=== PATIENT | male | born 1950 | race American Indian/Alaskan Native ===

== ENCOUNTER 2017-06-26 12:23 | Outpatient (CLI) | payer MEDICARE, OTHER ==
--- NOTE | 2017-06-26 13:18 | XRay Report ---
Unilateral left RIBS: History: Chest pain. Findings: No lytic or blastic lesion. No evidence of acute fracture. Impression: No evidence of acute fracture left ribs.
--- NOTE | 2017-06-26 13:18 | XRay Report ---
Chest 2 views: History: Chest pain. Findings: Normal cardiomediastinal silhouette. Trachea is midline. No consolidation, pneumothorax or pleural effusion. Impression: No acute cardiopulmonary findings.
== END 2017-06-26 12:24 | disposition home or self-care (01) ==
LOC: XRAY 12:23
PROVIDERS: ATTEND Internal Medicine
DX: R07.9 Chest pain, unspecified (principal)
CPT/HCPCS: 71046

== ENCOUNTER 2018-09-07 10:38 | Outpatient (CLI) | payer MEDICARE, OTHER ==
--- NOTE | 2018-09-07 11:28 | XRay Report ---
RIGHT KNEE, 3 views: History: Pain in right knee. No comparison. There is borderline bone mineralization. Mild retropatellar spurring and tibial spine spurring is identified. The medial and lateral compartments are within normal limits. There is no evidence for fracture, bone lesion or large joint effusion. IMPRESSION: Borderline osteopenia. Minimal osteoarthritic changes as described.
== END 2018-09-07 10:39 | disposition home or self-care (01) ==
LOC: XRAY 10:38
PROVIDERS: ATTEND Internal Medicine
DX: M17.11 Unilateral primary osteoarthritis, right knee (principal); E78.00 Pure hypercholesterolemia, unspecified; I10 Essential (primary) hypertension; K21.9 Gastro-esophageal reflux disease without esophagitis; E11.9 Type 2 diabetes mellitus without complications

== ENCOUNTER 2019-01-21 09:01 | Outpatient (CLI) | payer MEDICARE, OTHER ==
[2019-01-21 10:37] LABS: Chol/HDL Ratio 1.95 %
== END 2019-01-21 09:02 | disposition home or self-care (01) ==
LOC: LAB 09:01
PROVIDERS: ATTEND Internal Medicine
DX: E78.2 Mixed hyperlipidemia (principal); E11.9 Type 2 diabetes mellitus without complications; E78.00 Pure hypercholesterolemia, unspecified; K21.9 Gastro-esophageal reflux disease without esophagitis; I10 Essential (primary) hypertension
CPT/HCPCS: 36415; 80061; 83036

== ENCOUNTER 2019-07-25 07:54 | Outpatient (CLI) | payer MEDICARE, OTHER ==
--- NOTE | 2019-07-25 09:46 | Magnetic Resonance Report ---
MRI RIGHT KNEE WITHOUT CONTRAST INDICATION: PAIN IN RIGHT KNEE. COMPARISON: Right knee x-ray 09/07/2018 TECHNIQUE: Multiplanar, multisequence MR images were obtained. FINDINGS: ACL: Mucoid degeneration PCL: No significant abnormality. MEDIAL MENISCUS: No significant abnormality. LATERAL MENISCUS: Horizontal tear anterior horn lateral meniscus DISTAL QUADRICEPS TENDON: No significant abnormality. PATELLAR TENDON: No significant abnormality. MCL: No significant abnormality. LCL: No significant abnormality. DISTAL IT BAND: No significant abnormality. POSTEROLATERAL CORNER: No significant abnormality. PATELLOFEMORAL ALIGNMENT: Focal edema superior lateral aspect of Hoffa's fat pad characteristic for p atellar tendon/lateral femoral condyle friction syndrome. ARTICULAR CARTILAGE: Focal fissuring lateral patellar facet and lateral femoral trochlea with underly ing subchondral cystic change. JOINT SPACE: No significant joint effusion or synovitis. Small popliteal cyst. No intra-articular bod ies. BONES: No significant bone marrow edema. No fracture. No osseous lesion. SUBCUTANEOUS SOFT TISSUES: No significant abnormality. ADDITIONAL FINDINGS: None. IMPRESSION: 1. 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 2. Horizontal tear anterior horn lateral meniscus 3. Patellar tendon/lateral femoral condyle friction syndrome. Signer Name: Patel Weiner MD Signed: 07/25/2019 9:41 AM Workstation Name: [id number]
== END 2019-07-25 07:55 | disposition home or self-care (01) ==
LOC: MRI 07:54
PROVIDERS: ATTEND Orthopaedic Surgery
DX: S83.203A Other tear of unspecified meniscus, current injury, right knee, initial encounter (principal); M17.11 Unilateral primary osteoarthritis, right knee; M25.461 Effusion, right knee; M71.21 Synovial cyst of popliteal space [Baker], right knee; X58.XXXA Exposure to other specified factors, initial encounter; Y93.89 Activity, other specified; Y92.89 Other specified places as the place of occurrence of the external cause; Y99.8 Other external cause status
CPT/HCPCS: 73721

== ENCOUNTER 2020-08-22 16:38 | Emergency (ER) | payer MEDICARE, OTHER ==
--- NOTE | 2020-08-22 16:51 | Event Note ---
ED Screening Note Date of service: 08/22/20 Time: 16:50 ED Screening Note: Patient complains of intermittent dizziness x3 days Also admits to mild headache He states he had an head injury which he is unsure if he lost consciousness on 08/10/2020 Denies blood thinners or vision changes History of hypertension diabetes This initial assessment/diagnostic orders/clinical plan/treatment(s) is/are subject to change based on patients health status, clinical progression and re- assessment by fellow clinical providers in the ED. Further treatment and workup at subsequent clinical providers discretion. Patient/guardian urged not to elope from the ED as their condition may be serious if not clinically assessed and managed. Initial orders include: Labs EKG
--- NOTE | 2020-08-22 17:33 | Emergency Department Report ---
ED Headache HPI - General Chief Complaint: Headache Stated Complaint: HIT HEAD X 2WKS/HEADACHE Time Seen by Provider: 08/22/20 16:49 - History of Present Illness Initial Comments: 70-year-old male, history of hypertension, diabetes, presents to ED with complaint of headache x3 days. Patient states pain is located in the forehead area. States pain comes and goes quickly, lasting for only a couple of seconds. Pain is sharp when it occurs. Patient reports some mild, intermittent lightheadedness as well over the last 3 days. He denies any fever, nausea or vomiting, visual changes, numbness or weakness. Patient reports hitting the top of his head on a steel beam while attempting to stand underneath a bridge while fishing approximately 2 weeks ago. Questionable LOC. Patient denies any headache or dizziness immediately following the accident. Patient showed me a picture from that day of an abrasion to the top of his head. Area is currently healed. Patient is wondering if his symptoms today are related to his accident 2 weeks ago. Timing/Duration: other (3 days) Recent Head Trauma: occasional headaches, head trauma > 24 hrs ago Associated Symptoms: denies: confusion, fever/chills, nausea/vomiting, stiff neck, vision changes, weakness Allergies/Adverse Reactions: Allergies No Known Allergies Allergy (Verified 08/22/20 16:41) Home Medications: Ambulatory Orders Alfuzosin HCl [Uroxatral] 40 mg PO DAILY 03/14/15 Azilsartan Medoxomil [Edarbi] 40 mg PO DAILY 03/14/15 Betamethasone Dipropionate [Betamethasone Dipropionate 0.05% Cream] 1 applicatio TP QDAY 03/14/15 Celecoxib [celeBREX] 200 mg PO DAILY 03/14/15 Esomeprazole Magnesium [NexIUM] 40 mg PO QDAY 03/14/15 Pioglitazone HCl/Metformin HCl [Pioglitazone-Metformin 15-500] 1 each PO QDAY 03/14/15 Potassium Chloride [Klor-Con 8] 8 meq PO QDAY 03/14/15 HYDROcodone/APAP 5-325 [[place] 5/325] 1 - 2 each PO Q4HR PRN #30 tablet 03/20/15 Butalb/Acetamin/Caff 50-325-40 [Fioricet] 1 tab PO Q6HR PRN #10 tab 08/22/20 ED Review of Systems ROS: Stated complaint: HIT HEAD X 2WKS/HEADACHE Other details as noted in HPI Comment: All other systems reviewed and negative Constitutional: denies: fever Eyes: denies: vision change Gastrointestinal: denies: nausea, vomiting Musculoskeletal: other (reports neck pain) Neurological: headache. denies: weakness, numbness ED Past Medical Hx - Past Medical History Hx Hypertension: Yes Hx Diabetes: Yes (NIDDM 10 YEARS) Hx GERD: Yes Hx Arthritis: Yes Hx Asthma: No - Social History Smoking Status: Never Smoker Substance Use Type: None - Medications Home Medications: Home Medications Medication Instructions Recorded Confirmed Last Taken Type Alfuzosin HCl [Uroxatral] 40 mg PO DAILY 03/14/15 03/14/15 Unknown History Azilsartan Medoxomil [Edarbi] 40 mg PO DAILY 03/14/15 03/20/15 03/20/15 07:30 History Betamethasone Dipropionate 1 applicatio TP QDAY 03/14/15 03/20/15 03/19/15 07:00 History [Betamethasone Dipropionate 0.05% Cream] Celecoxib [celeBREX] 200 mg PO DAILY 03/14/15 03/20/15 03/19/15 13:00 History Esomeprazole Magnesium [NexIUM] 40 mg PO QDAY 03/14/15 03/20/15 03/19/15 08:00 History Pioglitazone HCl/Metformin HCl 1 each PO QDAY 03/14/15 03/20/15 03/19/15 13:00 History [Pioglitazone-Metformin 15-500] Potassium Chloride [Klor-Con 8] 8 meq PO QDAY 03/14/15 03/20/15 03/19/15 13:00 History HYDROcodone/APAP 5-325 [[place] 1 - 2 each PO Q4HR PRN #30 tablet 03/20/15 Unknown Rx 5/325] Butalb/Acetamin/Caff 50-325-40 1 tab PO Q6HR PRN #10 tab 08/22/20 Unknown Rx [Fioricet] ED Physical Exam - General Limitations: No Limitations General appearance: alert, in no apparent distress - Head Head exam: Present: atraumatic, normocephalic - Eye Eye exam: Present: normal appearance, PERRL, EOMI - ENT ENT exam: Present: mucous membranes moist - Neck Neck exam: Present: normal inspection, tenderness (paraspinal). Absent: meningismus - Respiratory Respiratory exam: Present: normal lung sounds bilaterally. Absent: respiratory distress - Cardiovascular Cardiovascular Exam: Present: regular rate, normal rhythm - GI/Abdominal GI/Abdominal exam: Present: soft. Absent: distended, tenderness - Extremities Exam Extremities exam: Present: normal inspection - Neurological Exam Neurological exam: Present: alert, oriented X3, CN II-XII intact, normal gait. Absent: motor sensory deficit - Psychiatric Psychiatric exam: Present: normal affect, normal mood - Skin Skin exam: Present: warm, dry, intact, normal color ED Course Vital Signs 08/22/20 08/22/20 08/22/20 16:41 17:30 17:45 Temperature 97.8 F Pulse Rate 87 74 70 Respiratory 18 14 16 Rate Blood Pressure 173/91 172/74 172/74 O2 Sat by Pulse 99 87 96 Oximetry 08/22/20 08/22/20 18:15 18:31 Temperature Pulse Rate 71 65 Respiratory 15 14 Rate Blood Pressure 172/74 172/74 O2 Sat by Pulse 98 99 Oximetry ED Medical Decision Making - Lab Data Result diagrams: 08/22/20 17:07 08/22/20 17:07 - EKG Data -: EKG Interpreted by Ny EKG shows normal: sinus rhythm, axis, intervals, QRS complexes, ST-T waves Rate: normal - EKG Data Interpretation: no acute changes - Radiology Data Radiology results: report reviewed, image reviewed - Medical Decision Making 70-year-old male presents to ED with intermittent headache and lightheadedness x3 days. Patient reports head injury approximately [address] head and C-spine unremarkable for any acute findings. Neuro exam is normal. Gait is normal. Labs are unremarkable. Patient denies any headache at this time. BP is improved without any intervention, currently with systolic in the 140s. Patient stable for discharge home. Advised to follow-up with his PCP. Will discharge with prescriptions for headache. - Differential Diagnosis Concussion, hypertensive headache, tension headache Critical care attestation.: If time is entered above; I have spent that time in minutes in the direct care of this critically ill patient, excluding procedure time. ED Disposition Clinical Impression: Headache, acute Disposition: DC-01 TO HOME OR SELFCARE Is pt being admited?: No Condition: Stable Instructions: General Headache Without Cause, [id number] Referrals: PRIMARY CARE, [Referring] - 3-5 Days MICHAELA DOMINGUEZ MD [Referring] - as needed Time of Disposition: 19:13
--- NOTE | 2020-08-22 18:25 | Cat Scan Report ---
CT HEAD WITHOUT CONTRAST INDICATION / CLINICAL INFORMATION: TADEO. TECHNIQUE: All CT scans at this location are performed using CT dose reduction for ALARA by means of automated e xposure control. COMPARISON: None available. FINDINGS: HEMORRHAGE: No evidence of intracranial hemorrhage or extra-axial fluid collection. EXTRA-AXIAL SPACES: Cortical sulci, sylvian fissures and basilar cisterns have an unremarkable appear ance. VENTRICULAR SYSTEM: The third and lateral ventricles are of normal size and configuration. CEREBRAL PARENCHYMA: Mild periventricular and deep white matter lucencies noted compatible with age-r elated microvascular ischemic change. Bilaterally symmetrical physiological calcification of the basa l ganglia structures is noted. No additional abnormalities of brain parenchymal attenuation are ident ified. There is no indication of recent infarction. MIDLINE SHIFT OR HERNIATION: There is no mass effect. CEREBELLUM / BRAINSTEM: Brainstem and cerebellum have an unremarkable appearance. MIDLINE STRUCTURES:No abnormalities of the pituitary gland or pineal region are identified. INTRACRANIAL VESSELS: Calcified atherosclerotic plaque is seen along the course of the cavernous segm ents of both internal carotid arteries. ORBITS: visualized portions of the orbits have an unremarkable appearance. SOFT TISSUES of HEAD: No significant abnormality. CALVARIUM: Evaluation of bone windows reveals no abnormalities. PARANASAL SINUSES / MASTOID AIR CELLS: Visualized portions of the paranasal sinuses are free from inf lammatory mucosal disease. Mastoid air cells are normally pneumatized. IMPRESSION: 1. Mild age-related microvascular ischemia. 2. Otherwise negative head CT without contrast. Signer Name: Sal Lopez MD Signed: 08/22/2020 6:20 PM Workstation Name: [id number]
[2020-08-22 18:26] LABS: BUN/Creatinine Ratio 24; Blood Urea Nitrogen 31 mg/dL (9-20)
[2020-08-22 18:27] LABS: Alanine Aminotransferase 16 units/L (7-56); Albumin 4.5 g/dL (3.9-5); Calcium 9.3 mg/dL (8.4-10.2); Hemolysis Index 11
--- NOTE | 2020-08-22 18:34 | Cat Scan Report ---
CT CERVICAL SPINE WITHOUT CONTRAST INDICATION / CLINICAL INFORMATION: Neck pain TECHNIQUE: Axial CT images were obtained through the cervical spine. Sagittal and coronal reformatted images wer e produced. All CT scans at this location are performed using CT dose reduction for ALARA by means of automated exposure control. COMPARISON: None available. FINDINGS: POSTOPERATIVE CHANGES: STATUS post ACDF C5-6 and C6-7 and C7-T1 levels. Solid bone union is present a t both levels. ALIGNMENT: Loss of the normal cervical lordosis is observed. Minimal spondylolisthesis is observed at the C3-4 and C4-5 levels. VERTEBRAE: Degenerative changes as described below. No indication of fracture or bone destruction. DISC SPACES: Disc height is fairly well-maintained. INDIVIDUAL LEVEL ANALYSIS: C2-3: Left worse than right facet arthropathy. Central spinal canal and neuroforamina are adequately maintained. C3-4: Bilateral facet arthropathy and mild uncovertebral degenerative changes are observed. There is severe left-sided and moderate right-sided neuroforaminal stenosis at the C4 nerve root level. C4-5: Bilateral facet and uncovertebral arthropathy. Minimal spondylolisthesis is observed. There is severe left-sided and moderate right-sided neuroforaminal stenosis at the C5 nerve root level. 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 C5-6: Status post ACDF. Moderate left-sided neuroforaminal stenosis. Central spinal canal and right C 6 nerve root neuroforamina are adequately maintained. C6-7: Status post ACDF. Central spinal canal and neuroforamina are adequately maintained. C7-T1: Bilateral facet arthropathy is noted. Mild grade 1 spondylolisthesis is observed at the cervic othoracic junction. Facet arthropathy contributes to severe right-sided and moderate left-sided isela inal stenosis at the C8 nerve root level. CRANIOCERVICAL JUNCTION:No significant abnormality. SPINAL CANAL: Central spinal canal is adequately maintained throughout. PARASPINAL SOFT TISSUES: No significant abnormality. LUNG APICES: Right apical pleural and parenchymal fibrotic changes are seen. IMPRESSION: 1. Spread cervical spondylosis with multifocal neuroforaminal narrowing as described level by fito baird. Signer Name: Sal Lopez MD Signed: 08/22/2020 6:29 PM Workstation Name: [id number]
[2020-08-22 18:37] LABS: Hematocrit 39.5 % (35.5-45.6); Hemoglobin 13.6 gm/dl (11.8-15.2); Lymphocytes % (Auto) 23.4 % (13.4-35.0); Mean Corpuscular HGB Conc 34 % (32-34); Mean Corpuscular Volume 97 fl (84-94); Platelet Count 244 K/mm3 (140-440); Red Blood Count 4.09 M/mm3 (3.65-5.03)
[2020-08-22 18:38] LABS: Basophils # (Auto) 0.1 K/mm3 (0.0-0.1); Basophils % (Auto) 0.6 % (0.0-1.8); Eosinophils # (Auto) 0.1 K/mm3 (0.0-0.4); Eosinophils % (Auto) 1.1 % (0.0-4.3); Monocytes # (Auto) 0.6 K/mm3 (0.0-0.8); Monocytes % (Auto) 7.1 % (0.0-7.3)
[2020-08-22 19:20] VITALS: BP 145/75
--- NOTE | 2020-08-23 11:21 | Electrocardiograph Report ---
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
== END 2020-08-22 19:40 | disposition home or self-care (01) ==
LOC: ED 16:38
DX: R51.9 Headache, unspecified (principal); I10 Essential (primary) hypertension; K21.9 Gastro-esophageal reflux disease without esophagitis; M19.90 Unspecified osteoarthritis, unspecified site; Z79.899 Other long term (current) drug therapy
CPT/HCPCS: 36415; 70450; 72125; 80053; 84484; 85025; 93005

== ENCOUNTER 2021-01-10 11:28 | Emergency (ER) | payer MEDICARE, OTHER ==
[2021-01-10 11:38] VITALS: BP 158/71
--- NOTE | 2021-01-10 14:08 | XRay Report ---
Right shoulder radiograph, 3 views HISTORY: Pain COMPARISON: None FINDINGS: Moderate to marked right AC osteoarthritis. Subacromial space is preserved. There is mild g lenohumeral osteoarthritis. There is no acute fracture or malalignment. Soft tissues are unremarkable . Visualized lungs are clear. Signer Name: Terry Armendariz MD Signed: 01/10/2021 2:04 PM Workstation Name: [id number]
--- NOTE | 2021-01-10 14:21 | Event Note ---
ED Screening Note Date of service: 01/10/21 Time: 14:19 ED Screening Note: Patient presents with complaints of right shoulder pain x3 weeks Pain radiates into his right upper chest Denies shortness of breath or cough States placed on naproxen and Flexeril by his doctor yesterday, however pain not improved No cardiac history per patient This initial assessment/diagnostic orders/clinical plan/treatment(s) is/are subject to change based on patients health status, clinical progression and re- assessment by fellow clinical providers in the ED. Further treatment and workup at subsequent clinical providers discretion. Patient/guardian urged not to elope from the ED as their condition may be serious if not clinically assessed and managed. Initial orders include: Labs EKG X-ray
[2021-01-10 14:55] LABS: Basophils % (Auto) 0.3 % (0.0-1.8); Eosinophils # (Auto) 0.1 K/mm3 (0.0-0.4); Eosinophils % (Auto) 0.8 % (0.0-4.3); Hemoglobin 13.6 gm/dl (11.8-15.2); Lymphocytes # (Auto) 1.9 K/mm3 (1.2-5.4); Lymphocytes % (Auto) 13.4 % (13.4-35.0); Mean Corpuscular HGB Conc 33 % (32-34); Mean Corpuscular Volume 95 fl (84-94); Monocytes # (Auto) 0.9 K/mm3 (0.0-0.8); Monocytes % (Auto) 6.4 % (0.0-7.3); Platelet Count 243 K/mm3 (140-440); Red Blood Count 4.32 M/mm3 (3.65-5.03); Red Cell Distribution Width 14.5 % (13.2-15.2)
[2021-01-10 15:11] LABS: Alanine Aminotransferase 15 units/L (7-56); Albumin 4.7 g/dL (3.9-5); BUN/Creatinine Ratio 20; Blood Urea Nitrogen 24 mg/dL (9-20); Calcium 9.5 mg/dL (8.4-10.2); Hemolysis Index 10
[2021-01-10] MEDS ORDERED: KETOROLAC 10 MG TAB PO ONE (15:11)
[2021-01-10] MEDS ORDERED: ACETAMINOPHEN 500 MG TAB PO STA (15:12)
--- NOTE | 2021-01-10 15:14 | XRay Report ---
CHEST 2 VIEWS INDICATION: right chest pain. COMPARISON: 06/26/2017 FINDINGS: Support devices: None. Heart: Within normal limits. Lungs/pleura: No acute air space or interstitial disease. No pneumothorax. Additional findings: No rib deformity is detected on chest x-ray IMPRESSION: Unremarkable chest films. No change since 06/26/2017. Signer Name: Jamie Guzman Jr, MD Signed: 01/10/2021 3:09 PM Workstation Name: [id number]
[2021-01-10] MEDS ORDERED: dexAMETHasone 4 MG/ML VIAL IM STA (16:13)
[2021-01-10] MEDS ORDERED: KETOROLAC 60 MG/2 ML INJ IM ONE (16:13)
--- NOTE | 2021-01-10 16:19 | Emergency Department Report ---
ED General Adult HPI - General Chief complaint: Extremity Injury, Upper Stated complaint: RT SHOULDER PAIN Time Seen by Provider: 01/10/21 14:19 Source: patient Mode of arrival: Ambulatory Limitations: No Limitations - History of Present Illness Initial comments: 70-year-old -[place] male patient presents with complaints of right shoulder pain x3 weeks, worsening over the past week. He reports he saw his PCP yesterday and was prescribed Flexeril and naproxen. Patient states the pain improved last night, however worsened upon waking this morning. He states naproxen is no longer helping. He denies any cough, shortness of breath, abdominal pain, leg pain/swelling, history of DVT/PE, recent known sick contacts, or fever/chills/sweats. He describes the pain as a tightness and states it worsens with movement of the right shoulder. Pain does radiate mildly into the right side of his upper chest. Past medical history includes hyperten heather, diabetes, GERD, and arthritis. He also denies any injuries to the right shoulder or heavy lifting - Related Data Home Medications Medication Instructions Recorded Confirmed Last Taken Alfuzosin HCl [Uroxatral] 40 mg PO DAILY 03/14/15 03/14/15 Unknown Azilsartan Medoxomil [Edarbi] 40 mg PO DAILY 03/14/15 03/20/15 03/20/15 07:30 Betamethasone Dipropionate 1 applicatio TP QDAY 03/14/15 03/20/15 03/19/15 07:00 [Betamethasone Dipropionate 0.05% Cream] Celecoxib [celeBREX] 200 mg PO DAILY 03/14/15 03/20/15 03/19/15 13:00 Esomeprazole Magnesium [NexIUM] 40 mg PO QDAY 03/14/15 03/20/15 03/19/15 08:00 Pioglitazone HCl/Metformin HCl 1 each PO QDAY 03/14/15 03/20/15 03/19/15 13:00 [Pioglitazone-Metformin 15-500] Potassium Chloride [Klor-Con 8] 8 meq PO QDAY 03/14/15 03/20/15 03/19/15 13:00 Previous Rx's Medication Instructions Recorded Last Taken Type HYDROcodone/APAP 5-325 [[place] 1 - 2 each PO Q4HR PRN #30 tablet 03/20/15 Unknown Rx 5/325] Butalb/Acetamin/Caff 50-325-40 1 tab PO Q6HR PRN #10 tab 08/22/20 Unknown Rx [Fioricet] Acetaminophen 1,000 mg PO TID PRN #30 capsule 01/10/21 Unknown Rx methocarbamoL [Methocarbamol] 500 mg PO TID PRN #20 tablet 01/10/21 Unknown Rx Allergies Allergy/AdvReac Type Severity Reaction Status Date / Time No Known Allergies Allergy Verified 01/10/21 11:35 ED Review of Systems ROS: Stated complaint: RT SHOULDER PAIN Other details as noted in HPI Constitutional: denies: chills, diaphoresis, fever, malaise, weakness ENT: denies: throat pain Respiratory: denies: cough, shortness of breath Cardiovascular: as per HPI. denies: palpitations, edema, syncope Gastrointestinal: denies: abdominal pain, nausea, vomiting Skin: denies: change in color ED Past Medical Hx - Past Medical History Hx Hypertension: Yes Hx Diabetes: Yes (NIDDM 10 YEARS) Hx GERD: Yes Hx Arthritis: Yes Hx Asthma: No - Surgical History Past Surgical History?: No - Social History Smoking Status: Never Smoker Substance Use Type: Alcohol - Medications Home Medications: Home Medications Medication Instructions Recorded Confirmed Last Taken Type Alfuzosin HCl [Uroxatral] 40 mg PO DAILY 03/14/15 03/14/15 Unknown History Azilsartan Medoxomil [Edarbi] 40 mg PO DAILY 03/14/15 03/20/15 03/20/15 07:30 History Betamethasone Dipropionate 1 applicatio TP QDAY 03/14/15 03/20/15 03/19/15 07:00 History [Betamethasone Dipropionate 0.05% Cream] Celecoxib [celeBREX] 200 mg PO DAILY 03/14/15 03/20/15 03/19/15 13:00 History Esomeprazole Magnesium [NexIUM] 40 mg PO QDAY 03/14/15 03/20/15 03/19/15 08:00 H istory Pioglitazone HCl/Metformin HCl 1 each PO QDAY 03/14/15 03/20/15 03/19/15 13:00 History [Pioglitazone-Metformin 15-500] Potassium Chloride [Klor-Con 8] 8 meq PO QDAY 10/03/20/15 03/19/15 13:00 History HYDROcodone/APAP 5-325 [[place] 1 - 2 each PO Q4HR PRN #30 tablet 03/20/15 U nknown Rx 5/325] Butalb/Acetamin/Caff 50-325-40 1 tab PO Q6HR PRN #10 tab 08/22/20 Unknown Rx [Fioricet] Acetaminophen 1,000 mg PO TID PRN #30 capsule 01/10/21 Unknown Rx methocarbamoL [Methocarbamol] 500 mg PO TID PRN #20 tablet 01/10/21 Unknown Rx ED Physical Exam - General Limitations: No Limitations General appearance: alert, in no apparent distress - Head Head exam: Present: atraumatic, normocephalic - Eye Eye exam: Present: normal appearance. Absent: scleral icterus - Neck Neck exam: Present: normal inspection, full ROM - Respiratory Respiratory exam: Present: normal lung sounds bilaterally. Absent: respiratory distress, chest wall tenderness - Cardiovascular Cardiovascular Exam: Present: regular rate, normal rhythm - GI/Abdominal GI/Abdominal exam: Present: soft. Absent: tenderness - Extremities Exam Extremities exam: Absent: calf tenderness (No swelling or pain noted bilaterally) - Expanded Upper Extremity Exam Right Shoulder Exam: Present: full ROM, tenderness (Tenderness to palpation noted over the supraspinatus muscle and scapular spine without swelling, skin changes, or obvious deformity noted). Absent: swelling, abrasion, ecchymosis, deformity Upper Arm exam: Present: normal inspection, full ROM Elbow exam: Present: normal inspection, full ROM Forearm Wrist exam: Present: normal inspection Hand Wrist exam: Present: normal inspection Vascular: Absent: vascular compromise - Back Exam Back exam: Present: full ROM - Neurological Exam Neurological exam: Present: alert, oriented X3, normal gait - Psychiatric Psychiatric exam: Present: normal affect, normal mood - Skin Skin exam: Present: warm, dry, intact, normal color. Absent: rash, cyanosis, diaphoretic ED Course Vital Signs 01/10/21 11:38 Temperature 98.6 F Pulse Rate 69 Respiratory 20 Rate Blood Pressure 158/71 O2 Sat by Pulse 98 Oximetry ED Medical Decision Making - Lab Data Result diagrams: 01/10/21 14:12 01/10/21 14:12 Lab Results 08/12/21 08/12/21 Range/Units 14:12 14:12 WBC 13.9 H (4.5-11.0) K/mm3 RBC 4.32 (3.65-5.03) M/mm3 Hgb 13.6 (11.8-15.2) gm/dl Hct 41.0 (35.5-45.6) % MCV 95 H (84-94) fl MCH 32 (28-32) pg MCHC 33 (32-34) % RDW 14.5 (13.2-15.2) % Plt Count 243 (140-440) K/mm3 Lymph % (Auto) 13.4 (13.4-35.0) % Randall % (Auto) 6.4 (0.0-7.3) % Eos % (Auto) 0.8 (0.0-4.3) % Baso % (Auto) 0.3 (0.0-1.8) % Lymph # (Auto) 1.9 (1.2-5.4) K/mm3 Randall # (Auto) 0.9 H (0.0-0.8) K/mm3 Eos # (Auto) 0.1 (0.0-0.4) K/mm3 Baso # (Auto) 0.0 (0.0-0.1) K/mm3 Seg Neutrophils % 79.1 H (40.0-70.0) % Seg Neutrophils # 11.0 H (1.8-7.7) K/mm3 Sodium 137 (137-145) mmol/L Potassium 4.6 (3.6-5.0) mmol/L Chloride 98.7 (98-107) mmol/L Carbon Dioxide 28 (22-30) mmol/L Anion Gap 15 mmol/L BUN 24 H (9-20) mg/dL Creatinine 1.2 (0.8-1.3) mg/dL Estimated GFR > 60 ml/min BUN/Creatinine Ratio 20 % Glucose 111 H (75-100) mg/dL Calcium 9.5 (8.4-10.2) mg/dL Total Bilirubin 0.40 (0.1-1.2) mg/dL AST 23 (5-40) units/L ALT 15 (7-56) units/L Alkaline Phosphatase 60 (35-129) units/L Troponin T < 0.010 (0.00-0.029) ng/mL Total Protein 7.6 (6.3-8.2) g/dL Albumin 4.7 (3.9-5) g/dL Albumin/Globulin Ratio 1.6 % - EKG Data EKG shows normal: sinus rhythm Rate: bradycardia (51 bpm) - EKG Data Interpretation: other (Probable left atrial enlargement) - Radiology Data Radiology results: report reviewed CHEST 2 VIEWS INDICATION: right chest pain. COMPARISON: 06/26/2017 FINDINGS: Support devices: None. Heart: Within normal limits. Lungs/pleura: No acute air space or interstitial disease. No pneumothorax. Additional findings: No rib deformity is detected on chest x-ray IMPRESSION: Unremarkable chest films. No change since 06/26/2017. Right shoulder radiograph, 3 views HISTORY: Pain COMPARISON: None FINDINGS: Moderate to marked right AC osteoarthritis. Subacromial space is preserved. There is mild glenohumeral osteoarthritis. There is no acute fracture or malalignment. Soft tissues are unremarkable. Visualized lungs are clear. - Medical Decision Making 70-year-old -[place] male patient presents with complaints of right shoulder pain x3 weeks, worsening over the past week. He reports he saw his PCP yesterday and was prescribed Flexeril and naproxen. Patient states the pain improved last night, however worsened upon waking this morning. He states naproxen is no longer helping. He denies any cough, shortness of breath, abdominal pain, leg pain/swelling, history of DVT/PE, recent known sick contacts, or fever/chills/sweats. He describes the pain as a tightness and states it worsens with movement of the right shoulder. Pain does radiate mildly into the right side of his upper chest. Past medical history includes hypertension, diabetes, GERD, and arthritis. He also denies any injuries to the right shoulder or heavy lifting Tenderness to palpation of the right supraspinatus muscle and scapular spine noted on exam. X-ray of the shoulder shows arthritic changes. Chest x-ray and troponin are normal. No acute abnormalities noted on EKG. Pain appears to be musculoskeletal in origin. Recommend icing, stretching, continue use of naproxen, muscle relaxers. He is to follow-up with his PCP in 2 to 3 days and orthopedics if pain continues. He is well-appearing, his vitals are within normal limits, he is stable for discharge home. Strict return precautions were discussed in detail with patient who verbalized understanding. Critical care attestation.: If time is entered above; I have spent that time in minutes in the direct care of this critically ill patient, excluding procedure time. ED Disposition Clinical Impression: Right shoulder pain Disposition: HOME / SELF CARE / HOMELESS Is pt being admited?: No Condition: Stable Instructions: Shoulder Pain Prescriptions: Acetaminophen 1,000 mg PO TID PRN #30 capsule PRN Reason: pain methocarbamoL [Methocarbamol] 500 mg PO TID PRN #20 tablet PRN Reason: muscle spasm/tightness Referrals: PRIMARY CARE, [Referring] - 3-5 Days [facility] [Provider Group] - 3-5 Days
--- NOTE | 2021-01-11 09:20 | Electrocardiograph Report ---
[facility] Test Date: 2021-01-10 Test Time: 13:40:06 Pat Name: JOSE DIGGS Department: Room: Gender: M Block Feeder: KARLA : 1950 Requested By: JOSE BANDA Order Number: [id number] Reading MD: Alexys Lewis Measurements Intervals [place] Rate: 51 P: 54 CT: 201 QRS: 2 QRSD: 77 T: 34 QT: 467 QTc: 430 Interpretive Statements Sinus bradycardia Probable left atrial enlargement Compared to ECG 08/22/2020 16:55:31 Sinus rhythm no longer present Electronically Signed On 01-11-2021 9:20:25 EDT by Alexys Lewis
== END 2021-01-11 01:32 | disposition home or self-care (01) ==
LOC: ED 11:28
DX: M25.511 Pain in right shoulder (principal); I10 Essential (primary) hypertension; E11.8 Type 2 diabetes mellitus with unspecified complications; K21.9 Gastro-esophageal reflux disease without esophagitis; M19.90 Unspecified osteoarthritis, unspecified site
CPT/HCPCS: 36415; 71046; 73030; 80053; 84484; 85025; 93005; 96372; 99284; J1100; J1885